=== PATIENT | male | born 1995 | race Hispanic/Latino ===

== ENCOUNTER 2021-12-22 18:58 | Emergency (ER) | payer OTHER, SELFPAY ==
[2021-12-22] MEDS ORDERED: Boostrix 0.5 ML (Tdap) VIAL ONE (19:31)
== END 2021-12-22 19:52 | disposition home or self-care (01) ==
LOC: NAV ERS 18:58
DX: S60.131A Contusion of right middle finger with damage to nail, initial encounter (principal); W20.8XXA Other cause of strike by thrown, projected or falling object, initial encounter; Y92.69 Other specified industrial and construction area as the place of occurrence of the external cause; Z23 Encounter for immunization
CPT/HCPCS: 11740; 90471; 90715

== ENCOUNTER 2021-12-31 20:06 | Emergency (ER) | payer SELFPAY ==
[2021-12-31] MEDS ORDERED: Ibuprofen 800 MG TAB ONE (20:31)
[2021-12-31] MEDS ORDERED: Sulfameth/Trimethoprim DS 800-160mg TAB ONE (20:31)
== END 2021-12-31 20:37 | disposition home or self-care (01) ==
LOC: NAV ERS 20:06
DX: L03.011 Cellulitis of right finger (principal)
CPT/HCPCS: 99283

== ENCOUNTER 2023-06-16 13:23 | Emergency (ER) | payer SELFPAY | END 2023-06-16 13:56 | disposition home or self-care (01) | LOC: NAV ERS 13:23 | DX: J11.1 Influenza due to unidentified influenza virus with other respiratory manifestations (principal); F17.290 Nicotine dependence, other tobacco product, uncomplicated | CPT/HCPCS: 99283 ==